=== PATIENT | female | born 1945 | race Caucasian/White ===

== ENCOUNTER 2021-06-11 10:05 | Emergency (ER) | payer SELFPAY ==
[2021-06-11] MEDS ORDERED: Bacitracin 1 PK ONE (11:11)
[2021-06-11] MEDS ORDERED: Acetaminophen 500 MG TAB ONE (11:34)
== END 2021-06-11 11:35 | disposition home or self-care (01) ==
LOC: MADERS 10:05
DX: S00.01XA Abrasion of scalp, initial encounter (principal); Z86.73 Personal history of transient ischemic attack (TIA), and cerebral infarction without residual deficits; W19.XXXA Unspecified fall, initial encounter
CPT/HCPCS: 70450; 72125; 72131; 93005

== ENCOUNTER 2021-06-21 19:53 | Emergency (ER) | payer MEDICARE, OTHER ==
[2021-06-21] MEDS ORDERED: Sodium Chloride 0.9% 500 ML ONE ×2 (21:18→22:30)
[2021-06-21 21:54] LABS: #Basophils 0.1 thou/uL (0.0-0.2); #Eosinphils 0.2 thou/uL (0.0-0.7); #Lymphocytes 2.3 thou/uL (1.20-3.40); #Monocytes 0.8 thou/uL (0.11-0.59); #Neutrophils 6.9 thou/uL (1.40-6.50); %Basophils 0.6 % (0.0-1.0); %Eosinophils 1.6 % (0.0-10.0); %Lymphocytes 22.6 % (21.0-51.0); %Monocytes 7.4 % (0.0-10.0); %Neutrophils 67.8 % (42.0-75.0); Hemoglobin 12.2 g/dL (12.0-16.0); Mean Corpuscular HGB CONC 32.5 g/dL (32.0-36.0); Mean Corpuscular Hemoglobin 28.6 pg (27.0-31.0); Mean Platelet Volume 6.9 fL (7.4-10.4); Platelet Count 290 thou/uL (130-400); RBC Distribution Width 13.7 % (11.5-14.5); Red Blood Cell (RBC) Count 4.27 mill/uL (4.20-5.40); White Blood Cell (WBC) Count 10.1 thou/uL (4.8-10.8)
[2021-06-21 22:13] LABS: ALT (SGPT) 15 U/L (8-55); AST (SGOT) 10 U/L (5-34); Alkaline Phosphatase 76 U/L (40-110); Anion Gap 14 mmol/L (10-20); BUN (Urea Nitrogen) 30 mg/dL (9.8-20.1); Bilirubin, Total 0.5 mg/dL (0.2-1.2); CK (CPK) 19 U/L (29-168); Calc. Creatinine Clearance 0 mL/min (70-130); Calcium 10.4 mg/dL (7.8-10.44); Carbon Dioxide 23 mmol/L (23-31); Chloride 105 mmol/L (98-107); Globulin 2.3 g/dL (2.4-3.5); Glucose 101 mg/dL (83-110); Magnesium 1.9 mg/dL (1.6-2.6); Potassium 4.2 mmol/L (3.5-5.1); Protein, Total 6.3 g/dL (5.8-8.1); Sodium 138 mmol/L (136-145)
[2021-06-21 22:52] LABS: Bilirubin Negative (Negative); Blood, Urine Negative (Negative); Clarity Clear (Clear); Glucose, Urine (Dipstick) Negative (Negative); Ketone, Urine Negative (Negative); Leukocyte Negative (Negative); Nitrite Negative (Negative); Protein, Urine (Dipstick) Negative (Neg-Trace); Urobilinogen 0.2 mg/dL (Less than 2); pH, Urine 5.5 (5.0-9.0)
== END 2021-06-21 23:37 | disposition home or self-care (01) ==
LOC: MADERS 19:53
DX: E86.0 Dehydration (principal); E03.9 Hypothyroidism, unspecified; K21.9 Gastro-esophageal reflux disease without esophagitis; I10 Essential (primary) hypertension; Z79.899 Other long term (current) drug therapy; Z79.82 Long term (current) use of aspirin
CPT/HCPCS: 70450; 71045; 80053; 81003; 82550; 83735; 83880; 84484; 85025; 93005; 94760; J7030

== ENCOUNTER 2021-10-26 13:49 | Emergency (ER) | payer MEDICARE ==
[2021-10-26 14:35] LABS: #Eosinphils 0.1 thou/uL (0.0-0.7); #Lymphocytes 1.7 thou/uL (1.20-3.40); #Monocytes 0.5 thou/uL (0.11-0.59); #Neutrophils 5.3 thou/uL (1.40-6.50); %Basophils 0.6 % (0.0-1.0); %Eosinophils 1.2 % (0.0-10.0); %Lymphocytes 22.1 % (21.0-51.0); %Monocytes 6.7 % (0.0-10.0); %Neutrophils 69.4 % (42.0-75.0); Hemoglobin 13.3 g/dL (12.0-16.0); Mean Corpuscular HGB CONC 33.4 g/dL (32.0-36.0); Mean Corpuscular Hemoglobin 29.7 pg (27.0-31.0); Mean Corpuscular Volume 89.1 fL (78.0-98.0); Mean Platelet Volume 8.5 fL (7.4-10.4); Platelet Count 247 thou/uL (130-400); RBC Distribution Width 14.1 % (11.5-14.5); Red Blood Cell (RBC) Count 4.49 mill/uL (4.20-5.40); White Blood Cell (WBC) Count 7.7 thou/uL (4.8-10.8)
[2021-10-26] MEDS ORDERED: Lidocaine Viscous Sol 2% 15 ml UD Cup ONE (14:46)
[2021-10-26] MEDS ORDERED: Mag-Al Plus 1200 MG/1200 MG/120 MG/30 ML UDCUP ONE (14:46)
[2021-10-26] MEDS ORDERED: Aspirin Chewable 81 MG TAB ONE (14:46)
[2021-10-26 14:50] LABS: ALT (SGPT) 13 U/L (8-55); AST (SGOT) 19 U/L (5-34); Albumin 4.1 g/dL (3.4-4.8); Alkaline Phosphatase 67 U/L (40-110); Anion Gap 19 mmol/L (10-20); BUN (Urea Nitrogen) 32 mg/dL (9.8-20.1); Bilirubin, Total 0.3 mg/dL (0.2-1.2); Calc. Creatinine Clearance 0 mL/min (70-130); Calcium 10.2 mg/dL (7.8-10.44); Carbon Dioxide 25 mmol/L (23-31); Chloride 105 mmol/L (98-107); Globulin 2.9 g/dL (2.4-3.5); Glucose 101 mg/dL (83-110); Lipase 24 U/L (8-78); Potassium 4.3 mmol/L (3.5-5.1); Sodium 145 mmol/L (136-145)
== END 2021-10-26 15:59 | disposition home or self-care (01) ==
LOC: MADERS 13:49
DX: K21.9 Gastro-esophageal reflux disease without esophagitis (principal); R07.89 Other chest pain; E78.2 Mixed hyperlipidemia; I10 Essential (primary) hypertension; M81.0 Age-related osteoporosis without current pathological fracture; Z86.73 Personal history of transient ischemic attack (TIA), and cerebral infarction without residual deficits; Z79.899 Other long term (current) drug therapy; Z79.01 Long term (current) use of anticoagulants
CPT/HCPCS: 71045; 80053; 83690; 83880; 84443; 84484; 85025; 93005; 94760

== ENCOUNTER 2022-01-09 16:45 | Inpatient (IN) | payer OTHER ==
[2022-01-09] MEDS ORDERED: Bisacodyl 5 MG TAB PO PRN (19:45)
[2022-01-09] MEDS ORDERED: Ondansetron ODT 4 MG TAB PO PRN (19:45)
[2022-01-09] MEDS ORDERED: Acetaminophen 650 MG Suppository PR PRN (19:48)
[2022-01-09] MEDS: Famotidine 20 MG TAB PO SCH (21:17)
[2022-01-09] MEDS ORDERED: CYANOCOBALAMIN SL SCH (22:00)
[2022-01-09] MEDS ORDERED: [UNRECOGNIZED DRUG - OTHER] SL SCH (22:00)
[2022-01-09] MEDS ORDERED: levETIRAcetam 500 MG TAB PO SCH (22:30)
[2022-01-10] MEDS: Levothyroxine Sodium 50 MCG TAB PO SCH (05:40)
[2022-01-10] MEDS: Clopidogrel Bisulfate 75 MG TAB PO SCH (08:39)
[2022-01-10] MEDS: Ascorbic Acid 500 mg Chewable Tablet PO SCH (08:39)
[2022-01-10] MEDS: levETIRAcetam 500 MG TAB PO SCH ×2 (08:39→21:22)
[2022-01-10] MEDS: Cholecalciferol 1,000 UNITS (25 MCG) TAB PO SCH (08:39)
[2022-01-10] MEDS: Aspirin 81 mg Enteric Coated Tablet PO SCH (08:39)
[2022-01-10] MEDS: Atorvastatin Calcium 10 MG TAB PO SCH (08:39)
[2022-01-10] MEDS: Ferrous Sulfate 325 MG TAB PO SCH (08:39)
[2022-01-10] MEDS: Lisinopril 10 MG TAB PO SCH (08:40)
[2022-01-10] MEDS: Famotidine 20 MG TAB PO SCH ×2 (08:42→21:18)
[2022-01-10] MEDS: Triamterene/Hydrochlorothiazide 37.5 mg/25 mg Tablet PO SCH (08:43)
[2022-01-10] MEDS ORDERED: prednisoLONE 1% Ophth Susp 5 ml Bottle L EYE SCH (09:00)
[2022-01-10] MEDS ORDERED: Triamterene/Hydrochlorothiazide 37.5 mg/25 mg Tablet PO SCH (09:00)
[2022-01-10] MEDS: KETOROLAC TROMETHAMINE L EYE SCH (15:41)
[2022-01-10 23:50] VITALS: BMI 25.0
[2022-01-11] MEDS: Levothyroxine Sodium 50 MCG TAB PO SCH (05:52)
[2022-01-11] MEDS: Triamterene/Hydrochlorothiazide 37.5 mg/25 mg Tablet PO SCH (09:22)
[2022-01-11] MEDS: Cholecalciferol 1,000 UNITS (25 MCG) TAB PO SCH (09:22)
[2022-01-11] MEDS: levETIRAcetam 500 MG TAB PO SCH ×2 (09:23→21:12)
[2022-01-11] MEDS: Atorvastatin Calcium 10 MG TAB PO SCH (09:23)
[2022-01-11] MEDS: Clopidogrel Bisulfate 75 MG TAB PO SCH (09:23)
[2022-01-11] MEDS: Aspirin 81 mg Enteric Coated Tablet PO SCH (09:23)
[2022-01-11] MEDS: Lisinopril 10 MG TAB PO SCH (09:23)
[2022-01-11] MEDS: Ascorbic Acid 500 mg Chewable Tablet PO SCH (09:23)
[2022-01-11] MEDS: Famotidine 20 MG TAB PO SCH (09:24)
[2022-01-11] MEDS: Senokot S 8.6-50 MG TAB PO PRN (21:12)
[2022-01-12] MEDS: Levothyroxine Sodium 50 MCG TAB PO SCH (05:57)
[2022-01-12] MEDS: Ascorbic Acid 500 mg Chewable Tablet PO SCH (09:29)
[2022-01-12] MEDS: Ferrous Sulfate 325 MG TAB PO SCH (09:29)
[2022-01-12] MEDS: Aspirin 81 mg Enteric Coated Tablet PO SCH (09:29)
[2022-01-12] MEDS: levETIRAcetam 500 MG TAB PO SCH ×2 (09:30→21:33)
[2022-01-12] MEDS: Clopidogrel Bisulfate 75 MG TAB PO SCH (09:30)
[2022-01-12] MEDS: Atorvastatin Calcium 10 MG TAB PO SCH (09:30)
[2022-01-12] MEDS: Cholecalciferol 1,000 UNITS (25 MCG) TAB PO SCH (09:30)
[2022-01-12] MEDS: Lisinopril 10 MG TAB PO SCH (09:30)
[2022-01-12] MEDS: Acetaminophen 325 MG TAB PO PRN (09:31)
[2022-01-12] MEDS: Triamterene/Hydrochlorothiazide 37.5 mg/25 mg Tablet PO SCH (09:32)
[2022-01-13] MEDS: Levothyroxine Sodium 50 MCG TAB PO SCH (05:35)
[2022-01-13] MEDS: Triamterene/Hydrochlorothiazide 37.5 mg/25 mg Tablet PO SCH (08:20)
[2022-01-13] MEDS: Ascorbic Acid 500 mg Chewable Tablet PO SCH (08:21)
[2022-01-13] MEDS: Aspirin 81 mg Enteric Coated Tablet PO SCH (08:21)
[2022-01-13] MEDS: Atorvastatin Calcium 10 MG TAB PO SCH (08:21)
[2022-01-13] MEDS: Clopidogrel Bisulfate 75 MG TAB PO SCH (08:21)
[2022-01-13] MEDS: levETIRAcetam 500 MG TAB PO SCH (08:21)
[2022-01-13] MEDS: Lisinopril 10 MG TAB PO SCH (08:21)
[2022-01-13] MEDS: Cholecalciferol 1,000 UNITS (25 MCG) TAB PO SCH (08:21)
[2022-01-13] MEDS: levETIRAcetam 500 mg/5 ml Oral Solution PO SCH (21:04)
[2022-01-14] MEDS: Levothyroxine Sodium 50 MCG TAB PO SCH (05:27)
[2022-01-14] MEDS: Cholecalciferol 1,000 UNITS (25 MCG) TAB PO SCH (09:15)
[2022-01-14] MEDS: Atorvastatin Calcium 10 MG TAB PO SCH (09:15)
[2022-01-14] MEDS: levETIRAcetam 500 mg/5 ml Oral Solution PO SCH ×2 (09:15→21:18)
[2022-01-14] MEDS: Clopidogrel Bisulfate 75 MG TAB PO SCH (09:15)
[2022-01-14] MEDS: Ascorbic Acid 500 mg Chewable Tablet PO SCH (09:15)
[2022-01-14] MEDS: Aspirin Chewable 81 MG TAB PO SCH (09:16)
[2022-01-14] MEDS: Triamterene/Hydrochlorothiazide 37.5 mg/25 mg Tablet PO SCH (09:16)
[2022-01-14] MEDS: Lisinopril 10 MG TAB PO SCH (09:16)
[2022-01-14] MEDS: Acetaminophen 325 MG TAB PO PRN (09:16)
[2022-01-14] MEDS: Gentamicin Ophth Soln 0.3% 5 ml Bottle L EYE SCH ×3 (12:47→21:18)
[2022-01-15] MEDS: Gentamicin Ophth Soln 0.3% 5 ml Bottle L EYE SCH ×6 (00:32→20:36)
[2022-01-15] MEDS: Levothyroxine Sodium 50 MCG TAB PO SCH (05:39)
[2022-01-15] MEDS: Cholecalciferol 1,000 UNITS (25 MCG) TAB PO SCH (10:14)
[2022-01-15] MEDS: Ascorbic Acid 500 mg Chewable Tablet PO SCH (10:14)
[2022-01-15] MEDS: Lisinopril 10 MG TAB PO SCH (10:14)
[2022-01-15] MEDS: Atorvastatin Calcium 10 MG TAB PO SCH (10:14)
[2022-01-15] MEDS: levETIRAcetam 500 mg/5 ml Oral Solution PO SCH ×2 (10:15→20:15)
[2022-01-15] MEDS: Triamterene/Hydrochlorothiazide 37.5 mg/25 mg Tablet PO SCH (10:15)
[2022-01-15] MEDS: Aspirin Chewable 81 MG TAB PO SCH (10:15)
[2022-01-15] MEDS: Clopidogrel Bisulfate 75 MG TAB PO SCH (10:15)
[2022-01-15] MEDS ORDERED: Lansoprazole 3 MG/ML ORAL SUSPENSION PO SCH (10:30)
[2022-01-15] MEDS: Senokot S 8.6-50 MG TAB PO PRN (20:15)
[2022-01-16] MEDS: Gentamicin Ophth Soln 0.3% 5 ml Bottle L EYE SCH ×3 (02:38→08:18)
[2022-01-16] MEDS: Levothyroxine Sodium 50 MCG TAB PO SCH (05:21)
[2022-01-16] MEDS: Cholecalciferol 1,000 UNITS (25 MCG) TAB PO SCH (08:24)
[2022-01-16] MEDS: levETIRAcetam 500 mg/5 ml Oral Solution PO SCH ×2 (08:24→21:10)
[2022-01-16] MEDS: Atorvastatin Calcium 10 MG TAB PO SCH (08:25)
[2022-01-16] MEDS: Lisinopril 10 MG TAB PO SCH (08:25)
[2022-01-16] MEDS: Aspirin Chewable 81 MG TAB PO SCH (08:25)
[2022-01-16] MEDS: Triamterene/Hydrochlorothiazide 37.5 mg/25 mg Tablet PO SCH (08:25)
[2022-01-16] MEDS: Clopidogrel Bisulfate 75 MG TAB PO SCH (08:25)
[2022-01-16] MEDS: Ascorbic Acid 500 mg Chewable Tablet PO SCH (08:26)
[2022-01-16] MEDS ORDERED: Lansoprazole 3 MG/ML ORAL SUSPENSION PO SCH (09:00)
[2022-01-16] MEDS ORDERED: Polyethylene Glycol OPTH DROP 15 ML BOT EA EYE PRN (12:11)
[2022-01-16] MEDS: MOXIFLOXACIN 0.5% L EYE SCH ×3 (13:09→21:11)
[2022-01-17] MEDS: Levothyroxine Sodium 50 MCG TAB PO SCH (05:58)
[2022-01-17] MEDS: Aspirin Chewable 81 MG TAB PO SCH (08:47)
[2022-01-17] MEDS: levETIRAcetam 500 mg/5 ml Oral Solution PO SCH ×2 (08:47→20:28)
[2022-01-17] MEDS: Triamterene/Hydrochlorothiazide 37.5 mg/25 mg Tablet PO SCH (08:47)
[2022-01-17] MEDS: Lisinopril 10 MG TAB PO SCH (08:48)
[2022-01-17] MEDS: Cholecalciferol 1,000 UNITS (25 MCG) TAB PO SCH (08:48)
[2022-01-17] MEDS: Clopidogrel Bisulfate 75 MG TAB PO SCH (08:48)
[2022-01-17] MEDS: Ascorbic Acid 500 mg Chewable Tablet PO SCH (08:48)
[2022-01-17] MEDS: Atorvastatin Calcium 10 MG TAB PO SCH (08:48)
[2022-01-17] MEDS: MOXIFLOXACIN 0.5% L EYE SCH ×3 (08:49→20:30)
[2022-01-17] MEDS: Acetaminophen 325 MG TAB PO PRN (20:30)
[2022-01-18] MEDS: Levothyroxine Sodium 50 MCG TAB PO SCH (06:13)
[2022-01-18] MEDS: levETIRAcetam 500 mg/5 ml Oral Solution PO SCH ×2 (08:43→20:48)
[2022-01-18] MEDS: Triamterene/Hydrochlorothiazide 37.5 mg/25 mg Tablet PO SCH (08:43)
[2022-01-18] MEDS: Cholecalciferol 1,000 UNITS (25 MCG) TAB PO SCH (08:43)
[2022-01-18] MEDS: Ascorbic Acid 500 mg Chewable Tablet PO SCH (08:43)
[2022-01-18] MEDS: Lisinopril 10 MG TAB PO SCH (08:44)
[2022-01-18] MEDS: Clopidogrel Bisulfate 75 MG TAB PO SCH (08:44)
[2022-01-18] MEDS: Atorvastatin Calcium 10 MG TAB PO SCH (08:44)
[2022-01-18] MEDS: Aspirin Chewable 81 MG TAB PO SCH (08:44)
[2022-01-18] MEDS: MOXIFLOXACIN 0.5% L EYE SCH ×3 (08:45→20:47)
[2022-01-19] MEDS: Levothyroxine Sodium 50 MCG TAB PO SCH (05:27)
[2022-01-19] MEDS: Triamterene/Hydrochlorothiazide 37.5 mg/25 mg Tablet PO SCH (08:55)
[2022-01-19] MEDS: Lisinopril 10 MG TAB PO SCH (08:55)
[2022-01-19] MEDS: levETIRAcetam 500 mg/5 ml Oral Solution PO SCH ×2 (08:55→20:24)
[2022-01-19] MEDS: Clopidogrel Bisulfate 75 MG TAB PO SCH (08:56)
[2022-01-19] MEDS: Atorvastatin Calcium 10 MG TAB PO SCH (08:56)
[2022-01-19] MEDS: Aspirin Chewable 81 MG TAB PO SCH (08:56)
[2022-01-19] MEDS: Cholecalciferol 1,000 UNITS (25 MCG) TAB PO SCH (08:56)
[2022-01-19] MEDS: Ascorbic Acid 500 mg Chewable Tablet PO SCH (08:56)
[2022-01-19] MEDS: MOXIFLOXACIN 0.5% L EYE SCH ×3 (08:57→20:24)
[2022-01-20] MEDS: Levothyroxine Sodium 50 MCG TAB PO SCH (05:33)
[2022-01-20] MEDS: Triamterene/Hydrochlorothiazide 37.5 mg/25 mg Tablet PO SCH (08:06)
[2022-01-20] MEDS: Cholecalciferol 1,000 UNITS (25 MCG) TAB PO SCH (08:06)
[2022-01-20] MEDS: Aspirin Chewable 81 MG TAB PO SCH (08:06)
[2022-01-20] MEDS: Atorvastatin Calcium 10 MG TAB PO SCH (08:07)
[2022-01-20] MEDS: Acetaminophen 325 MG TAB PO PRN (08:07)
[2022-01-20] MEDS: Clopidogrel Bisulfate 75 MG TAB PO SCH (08:07)
[2022-01-20] MEDS: Ascorbic Acid 500 mg Chewable Tablet PO SCH (08:07)
[2022-01-20] MEDS: levETIRAcetam 500 mg/5 ml Oral Solution PO SCH (08:07)
[2022-01-20] MEDS: Lisinopril 10 MG TAB PO SCH (08:07)
[2022-01-20] MEDS: MOXIFLOXACIN 0.5% L EYE SCH ×2 (08:09→16:10)
[2022-01-20 08:35] VITALS: BP 122/66; TEMP 98.5
== END 2022-01-20 16:30 | disposition home or self-care (01) | DRG 947 ==
LOC: MADMS 18:47
PROVIDERS: ADMIT Family Medicine; ATTEND Family Medicine
DX: R53.81 Other malaise (principal); G93.41 Metabolic encephalopathy; I69.351 Hemiplegia and hemiparesis following cerebral infarction affecting right dominant side; G43.909 Migraine, unspecified, not intractable, without status migrainosus; E78.5 Hyperlipidemia, unspecified; E86.0 Dehydration; Z20.822 Contact with and (suspected) exposure to COVID-19; M19.90 Unspecified osteoarthritis, unspecified site; E03.9 Hypothyroidism, unspecified; Z85.841 Personal history of malignant neoplasm of brain; Z92.21 Personal history of antineoplastic chemotherapy; Z92.3 Personal history of irradiation; Z88.6 Allergy status to analgesic agent; Z79.899 Other long term (current) drug therapy; Z79.82 Long term (current) use of aspirin; Z79.02 Long term (current) use of antithrombotics/antiplatelets; Z79.890 Hormone replacement therapy; Z79.51 Long term (current) use of inhaled steroids; Z98.41 Cataract extraction status, right eye; Z98.42 Cataract extraction status, left eye; Z90.710 Acquired absence of both cervix and uterus
CPT/HCPCS: 36416; U0003; U0005

== ENCOUNTER 2022-04-22 14:46 | Emergency (ER) | payer OTHER ==
[2022-04-22] MEDS ORDERED: Famotidine/PF 20 mg/2ml Vial ONE (15:02)
[2022-04-22] MEDS ORDERED: Famotidine/PF 20 mg/2ml Vial SLOW IVP SCH (15:30)
[2022-04-22 15:53] LABS: #Basophils 0.1 thou/uL (0.0-0.2); #Eosinphils 0.1 thou/uL (0.0-0.7); #Lymphocytes 2.2 thou/uL (1.20-3.40); #Monocytes 0.7 thou/uL (0.11-0.59); #Neutrophils 6.3 thou/uL (1.40-6.50); %Basophils 0.8 % (0.0-1.0); %Eosinophils 1.1 % (0.0-10.0); %Lymphocytes 23.1 % (21.0-51.0); %Monocytes 7.4 % (0.0-10.0); %Neutrophils 67.6 % (42.0-75.0); Hemoglobin 13.6 g/dL (12.0-16.0); Mean Corpuscular HGB CONC 31.7 g/dL (32.0-36.0); Mean Corpuscular Hemoglobin 28.7 pg (27.0-31.0); Mean Corpuscular Volume 90.8 fL (78.0-98.0); Mean Platelet Volume 7.5 fL (7.4-10.4); Platelet Count 265 thou/uL (130-400); RBC Distribution Width 14.2 % (11.5-14.5); Red Blood Cell (RBC) Count 4.75 mill/uL (4.20-5.40); White Blood Cell (WBC) Count 9.4 thou/uL (4.8-10.8)
[2022-04-22 16:07] LABS: ALT (SGPT) 15 U/L (8-55); AST (SGOT) 22 U/L (5-34); Albumin 4.1 g/dL (3.4-4.8); Alkaline Phosphatase 94 U/L (40-110); Anion Gap 15 mmol/L (10-20); BUN (Urea Nitrogen) 29 mg/dL (9.8-20.1); Bilirubin, Total 0.3 mg/dL (0.2-1.2); Calc. Creatinine Clearance 0 mL/min (70-130); Carbon Dioxide 25 mmol/L (23-31); Chloride 106 mmol/L (98-107); Estimated GFR 71; Glucose 99 mg/dL (83-110); Magnesium 1.8 mg/dL (1.6-2.6); Potassium 4.5 mmol/L (3.5-5.1); Protein, Total 7.1 g/dL (5.8-8.1); Sodium 141 mmol/L (136-145)
[2022-04-22] MEDS ORDERED: Sodium Chloride 0.9% 1,000 ML ONE (17:03)
== END 2022-04-22 19:56 | disposition home or self-care (01) ==
LOC: MADERS 14:46
DX: R07.9 Chest pain, unspecified (principal); E03.9 Hypothyroidism, unspecified; K21.9 Gastro-esophageal reflux disease without esophagitis; E78.00 Pure hypercholesterolemia, unspecified; I10 Essential (primary) hypertension; M81.0 Age-related osteoporosis without current pathological fracture; G40.409 Other generalized epilepsy and epileptic syndromes, not intractable, without status epilepticus; Z85.72 Personal history of non-Hodgkin lymphomas; Z79.899 Other long term (current) drug therapy
CPT/HCPCS: 71045; 80053; 83735; 84484; 85025; 93005; 96374; J7050; S0028

== ENCOUNTER 2022-08-11 19:26 | Emergency (ER) | payer MEDICARE, OTHER ==
[2022-08-11 21:00] LABS: #Basophils 0.1 thou/uL (0.0-0.2); #Eosinphils 0.2 thou/uL (0.0-0.7); #Lymphocytes 2.2 thou/uL (1.20-3.40); #Monocytes 0.7 thou/uL (0.11-0.59); #Neutrophils 7.7 thou/uL (1.40-6.50); %Basophils 0.6 % (0.0-1.0); %Eosinophils 1.7 % (0.0-10.0); %Lymphocytes 20.3 % (21.0-51.0); %Monocytes 6.1 % (0.0-10.0); %Neutrophils 71.3 % (42.0-75.0); Hemoglobin 11.7 g/dL (12.0-16.0); Mean Corpuscular HGB CONC 33.5 g/dL (32.0-36.0); Mean Corpuscular Hemoglobin 29.6 pg (27.0-31.0); Mean Corpuscular Volume 88.4 fl (78.0-98.0); Mean Platelet Volume 7.4 fL (7.4-10.4); Platelet Count 263 10x3/uL (130-400); RBC Distribution Width 12.9 % (11.5-14.5); Red Blood Cell (RBC) Count 3.96 mill/uL (4.20-5.40); White Blood Cell (WBC) Count 10.8 10x3/uL (4.8-10.8)
[2022-08-11 21:18] LABS: Base Excess-Venous -0.3 mmol/L (-2.0 to 3.0); Bicarbonate (HCO3v) 24.2 mmol/L (22.0-28.0); CO2 Tension (PvCO2) 38.4 mmHg (42.0-51.0); Calcium, Ionized 1.22 mmol/L (1.15-1.33); Chloride 105 mmol/L (98-107); Hemoglobin - Calc 12.1 g/dL (12.0-16.0); Potassium 3.9 mmol/L (3.5-5.1); Sodium 139 mmol/L (138-145); T. Carbon Dioxide 25.4 mmol/L (22.0-28.0)
[2022-08-11 21:28] LABS: ALT (SGPT) 12 U/L (8-55); AST (SGOT) 12 U/L (5-34); Albumin 3.6 g/dL (3.4-4.8); Alkaline Phosphatase 70 U/L (40-110); Anion Gap 14 mmol/L (10-20); BUN (Urea Nitrogen) 38 mg/dL (9.8-20.1); Bilirubin, Total 0.3 mg/dL (0.2-1.2); CK (CPK) 19 U/L (29-168); Calc. Creatinine Clearance 0 mL/min (70-130); Calcium 9.5 mg/dL (7.8-10.44); Carbon Dioxide 23 mmol/L (23-31); Chloride 106 mmol/L (98-107); Estimated GFR 71; Globulin 1.9 g/dL (2.4-3.5); Glucose 106 mg/dL (83-110); Lipase 36 U/L (8-78); Magnesium 1.8 mg/dL (1.6-2.6); Protein, Total 5.5 g/dL (5.8-8.1); Sodium 139 mmol/L (136-145)
[2022-08-11] MEDS ORDERED: Lactated Ringer's 1,000 ML ONE (22:31)
== END 2022-08-11 23:40 | disposition home or self-care (01) ==
LOC: MADERS 19:26
DX: E86.0 Dehydration (principal); E86.1 Hypovolemia; N19 Unspecified kidney failure; E03.9 Hypothyroidism, unspecified; K21.9 Gastro-esophageal reflux disease without esophagitis; E78.00 Pure hypercholesterolemia, unspecified; I10 Essential (primary) hypertension; M81.0 Age-related osteoporosis without current pathological fracture; G40.409 Other generalized epilepsy and epileptic syndromes, not intractable, without status epilepticus; Z20.822 Contact with and (suspected) exposure to COVID-19; Z86.73 Personal history of transient ischemic attack (TIA), and cerebral infarction without residual deficits; Z85.841 Personal history of malignant neoplasm of brain; Z79.899 Other long term (current) drug therapy
CPT/HCPCS: 71045; 82330; 82435; 82550; 82803; 83605; 83690; 83735; 84132; 84295; 85014; 87040; 87149 ×2; 87804 ×2; 93005; 94760; 96360; 99284; U0003; U0005; 80053; 84443; 85025; J7120

== ENCOUNTER 2022-08-21 10:27 | Emergency (ER) | payer OTHER ==
[2022-08-21] MEDS ORDERED: Lactated Ringer's 1,000 ML ONE ×2 (11:33→12:49)
[2022-08-21 11:46] LABS: #Basophils 0.1 thou/uL (0.0-0.2); #Eosinphils 0.2 thou/uL (0.0-0.7); #Lymphocytes 1.9 thou/uL (1.20-3.40); #Monocytes 0.5 thou/uL (0.11-0.59); #Neutrophils 6.3 thou/uL (1.40-6.50); %Basophils 0.8 % (0.0-1.0); %Eosinophils 1.8 % (0.0-10.0); %Lymphocytes 21.3 % (21.0-51.0); %Monocytes 5.8 % (0.0-10.0); %Neutrophils 70.3 % (42.0-75.0); Hemoglobin 11.9 g/dL (12.0-16.0); Mean Corpuscular HGB CONC 33.2 g/dL (32.0-36.0); Mean Corpuscular Hemoglobin 29.1 pg (27.0-31.0); Mean Corpuscular Volume 87.8 fl (78.0-98.0); Mean Platelet Volume 6.4 fL (7.4-10.4); Platelet Count 308 10x3/uL (130-400); RBC Distribution Width 12.6 % (11.5-14.5); Red Blood Cell (RBC) Count 4.08 mill/uL (4.20-5.40)
[2022-08-21 12:09] LABS: ALT (SGPT) 13 U/L (8-55); AST (SGOT) 13 U/L (5-34); Albumin 4.2 g/dL (3.4-4.8); Alkaline Phosphatase 76 U/L (40-110); Anion Gap 14 mmol/L (10-20); BUN (Urea Nitrogen) 37 mg/dL (9.8-20.1); Bilirubin, Total 0.4 mg/dL (0.2-1.2); CK (CPK) 18 U/L (29-168); Calc. Creatinine Clearance 0 mL/min (70-130); Calcium 9.4 mg/dL (7.8-10.44); Carbon Dioxide 25 mmol/L (23-31); Chloride 107 mmol/L (98-107); Estimated GFR 48; Globulin 2.3 g/dL (2.4-3.5); Glucose 116 mg/dL (83-110); Lipase 25 U/L (8-78); Potassium 4.3 mmol/L (3.5-5.1); Protein, Total 6.5 g/dL (5.8-8.1); Sodium 142 mmol/L (136-145)
[2022-08-21 12:57] LABS: Bilirubin Negative (Negative); Blood, Urine Negative (Negative); Clarity Clear (Clear); Glucose, Urine (Dipstick) Negative (Negative); Ketone, Urine Negative (Negative); Leukocyte Negative (Negative); Nitrite Negative (Negative); Protein, Urine (Dipstick) Negative (Neg-Trace); Specific Gravity, Urine 1.025 (1.005-1.030); Urobilinogen 0.2 mg/dL (Less than 2)
== END 2022-08-21 13:15 | disposition home or self-care (01) ==
LOC: MADERS 10:27
DX: E86.0 Dehydration (principal); N19 Unspecified kidney failure; E03.9 Hypothyroidism, unspecified; K21.9 Gastro-esophageal reflux disease without esophagitis; E78.00 Pure hypercholesterolemia, unspecified; I10 Essential (primary) hypertension
CPT/HCPCS: 80053; 81003; 82550; 83605; 83690; 83735; 83880; 85025; 87040; 93005; 94760; 96360; J7120

== ENCOUNTER 2022-11-14 11:14 | Emergency (ER) | payer OTHER ==
[2022-11-14 13:06] LABS: #Eosinphils 0.1 thou/uL (0.0-0.7); #Lymphocytes 1.5 thou/uL (1.20-3.40); #Monocytes 0.4 thou/uL (0.11-0.59); #Neutrophils 5.1 thou/uL (1.40-6.50); %Basophils 0.4 % (0.0-1.0); %Eosinophils 1.9 % (0.0-10.0); %Lymphocytes 21.5 % (21.0-51.0); %Monocytes 5.6 % (0.0-10.0); %Neutrophils 70.7 % (42.0-75.0); Hemoglobin 13.6 g/dL (12.0-16.0); Mean Corpuscular Hemoglobin 28.4 pg (27.0-31.0); Mean Corpuscular Volume 88.6 fl (78.0-98.0); Mean Platelet Volume 8.5 fL (7.4-10.4); Platelet Count 244 10x3/uL (130-400); RBC Distribution Width 13.8 % (11.5-14.5); Red Blood Cell (RBC) Count 4.78 mill/uL (4.20-5.40); White Blood Cell (WBC) Count 7.2 10x3/uL (4.8-10.8)
[2022-11-14 13:17] LABS: INR-International Normal Ratio 0.9; Prothrombin Time 12.4 sec (12.0-14.7)
[2022-11-14 13:26] LABS: ALT (SGPT) 10 U/L (8-55); AST (SGOT) 13 U/L (5-34); Albumin 3.9 g/dL (3.4-4.8); Alkaline Phosphatase 87 U/L (40-110); Anion Gap 15 mmol/L (10-20); BUN (Urea Nitrogen) 17 mg/dL (9.8-20.1); Bilirubin, Total 0.4 mg/dL (0.2-1.2); Calc. Creatinine Clearance 0 mL/min (70-130); Calcium 9.7 mg/dL (7.8-10.44); Carbon Dioxide 24 mmol/L (23-31); Chloride 107 mmol/L (98-107); Estimated GFR 67; Globulin 2.9 g/dL (2.4-3.5); Glucose 96 mg/dL (83-110); Potassium 3.9 mmol/L (3.5-5.1); Protein, Total 6.8 g/dL (5.8-8.1); Sodium 142 mmol/L (136-145)
[2022-11-14 13:50] LABS: Bilirubin Negative (Negative); Blood, Urine Negative (Negative); Clarity Clear (Clear); Glucose, Urine (Dipstick) Negative (Negative); Ketone, Urine Negative (Negative); Leukocyte Negative (Negative); Nitrite Negative (Negative); Protein, Urine (Dipstick) Negative (Neg-Trace); Specific Gravity, Urine 1.025 (1.005-1.030); Urobilinogen 0.2 mg/dL (Less than 2)
[2022-11-14] MEDS ORDERED: Aspirin Chewable 81 MG TAB ONE (14:24)
== END 2022-11-14 15:41 | disposition home or self-care (01) ==
LOC: MADERS 11:14
DX: R53.1 Weakness (principal); E78.00 Pure hypercholesterolemia, unspecified; E03.9 Hypothyroidism, unspecified; K21.9 Gastro-esophageal reflux disease without esophagitis; I10 Essential (primary) hypertension; Z79.02 Long term (current) use of antithrombotics/antiplatelets; Z79.82 Long term (current) use of aspirin
CPT/HCPCS: 70450; 80053; 81003; 85025; 85610; 93005

== ENCOUNTER 2022-12-22 15:15 | Inpatient (IN) | payer OTHER ==
[2022-12-22] MEDS ORDERED: Acetaminophen 325 MG TAB PO PRN (16:59)
[2022-12-22] MEDS: Levothyroxine Sodium 25 MCG TAB PO SCH (21:49)
[2022-12-22] MEDS: Simethicone Chewable 80 MG TAB PO SCH ×2 (21:49)
[2022-12-22] MEDS: Atorvastatin Calcium 40 MG TAB PO SCH (21:49)
[2022-12-22] MEDS: levETIRAcetam 500 mg/5 ml Oral Solution PO SCH (21:50)
[2022-12-22] MEDS: Ferrous Sulfate 325 MG TAB PO SCH (21:50)
[2022-12-23] MEDS: Aspirin Chewable 81 MG TAB PO SCH (08:22)
[2022-12-23] MEDS: Simethicone Chewable 80 MG TAB PO SCH ×4 (08:23→21:39)
[2022-12-23] MEDS: levETIRAcetam 500 mg/5 ml Oral Solution PO SCH ×2 (08:23→21:36)
[2022-12-23] MEDS: Lisinopril 20 MG TAB PO SCH (08:23)
[2022-12-23] MEDS: Saccharomyces boulardii 250 MG CAP PO SCH (08:24)
[2022-12-23] MEDS: Cholecalciferol (Vitamin D3) 400 UNITS TAB PO SCH (08:24)
[2022-12-23] MEDS: Amlodipine 5 MG TAB PO SCH (08:24)
[2022-12-23] MEDS: Clopidogrel Bisulfate 75 MG TAB PO SCH (08:24)
[2022-12-23] MEDS: Atorvastatin Calcium 40 MG TAB PO SCH (21:36)
[2022-12-23] MEDS: Levothyroxine Sodium 25 MCG TAB PO SCH (21:36)
[2022-12-24 05:33] LABS: Hemoglobin 10.9 g/dL (12.0-16.0); Platelet Count 298 10x3/uL (130-400)
[2022-12-24] MEDS: Lisinopril 20 MG TAB PO SCH (09:06)
[2022-12-24] MEDS: Clopidogrel Bisulfate 75 MG TAB PO SCH (09:06)
[2022-12-24] MEDS: Aspirin Chewable 81 MG TAB PO SCH (09:06)
[2022-12-24] MEDS: Cholecalciferol (Vitamin D3) 400 UNITS TAB PO SCH (09:06)
[2022-12-24] MEDS: levETIRAcetam 500 mg/5 ml Oral Solution PO SCH ×2 (09:06→21:36)
[2022-12-24] MEDS: Amlodipine 5 MG TAB PO SCH (09:07)
[2022-12-24] MEDS: Simethicone Chewable 80 MG TAB PO SCH ×4 (09:07→22:05)
[2022-12-24] MEDS: Saccharomyces boulardii 250 MG CAP PO SCH (09:07)
[2022-12-24 13:06] VITALS: BMI 25.4
[2022-12-24] MEDS: Atorvastatin Calcium 40 MG TAB PO SCH (21:42)
[2022-12-24] MEDS: Ferrous Sulfate 325 MG TAB PO SCH (21:42)
[2022-12-24] MEDS: Levothyroxine Sodium 25 MCG TAB PO SCH (21:42)
[2022-12-25] MEDS: Amlodipine 5 MG TAB PO SCH (09:14)
[2022-12-25] MEDS: Cholecalciferol (Vitamin D3) 400 UNITS TAB PO SCH (09:15)
[2022-12-25] MEDS: Aspirin Chewable 81 MG TAB PO SCH (09:15)
[2022-12-25] MEDS: Simethicone Chewable 80 MG TAB PO SCH ×4 (09:16→22:11)
[2022-12-25] MEDS: Saccharomyces boulardii 250 MG CAP PO SCH (09:16)
[2022-12-25] MEDS: Clopidogrel Bisulfate 75 MG TAB PO SCH (09:17)
[2022-12-25] MEDS: Lisinopril 20 MG TAB PO SCH (09:17)
[2022-12-25] MEDS: levETIRAcetam 500 mg/5 ml Oral Solution PO SCH ×2 (09:17→20:14)
[2022-12-25] MEDS: Levothyroxine Sodium 25 MCG TAB PO SCH (20:14)
[2022-12-25] MEDS: Atorvastatin Calcium 40 MG TAB PO SCH (20:15)
[2022-12-26] MEDS: Cholecalciferol (Vitamin D3) 400 UNITS TAB PO SCH (09:08)
[2022-12-26] MEDS: Aspirin Chewable 81 MG TAB PO SCH (09:08)
[2022-12-26] MEDS: Amlodipine 5 MG TAB PO SCH (09:08)
[2022-12-26] MEDS: Clopidogrel Bisulfate 75 MG TAB PO SCH (09:09)
[2022-12-26] MEDS: Lisinopril 20 MG TAB PO SCH (09:09)
[2022-12-26] MEDS: Saccharomyces boulardii 250 MG CAP PO SCH (09:09)
[2022-12-26] MEDS: levETIRAcetam 500 mg/5 ml Oral Solution PO SCH ×2 (09:10→21:26)
[2022-12-26] MEDS: Simethicone Chewable 80 MG TAB PO SCH ×4 (09:10→21:40)
[2022-12-26] MEDS: Levothyroxine Sodium 25 MCG TAB PO SCH (21:26)
[2022-12-26] MEDS: Atorvastatin Calcium 40 MG TAB PO SCH (21:26)
[2022-12-26] MEDS: Ferrous Sulfate 325 MG TAB PO SCH (21:30)
[2022-12-27] MEDS: Lisinopril 20 MG TAB PO SCH (08:35)
[2022-12-27] MEDS: Aspirin Chewable 81 MG TAB PO SCH (08:35)
[2022-12-27] MEDS: Simethicone Chewable 80 MG TAB PO SCH ×4 (08:35→22:59)
[2022-12-27] MEDS: levETIRAcetam 500 mg/5 ml Oral Solution PO SCH ×2 (08:35→20:30)
[2022-12-27] MEDS: Saccharomyces boulardii 250 MG CAP PO SCH (08:35)
[2022-12-27] MEDS: Clopidogrel Bisulfate 75 MG TAB PO SCH (08:35)
[2022-12-27] MEDS: Amlodipine 5 MG TAB PO SCH (08:36)
[2022-12-27] MEDS: Cholecalciferol (Vitamin D3) 400 UNITS TAB PO SCH (08:36)
[2022-12-27] MEDS: Atorvastatin Calcium 40 MG TAB PO SCH (20:33)
[2022-12-27] MEDS: Levothyroxine Sodium 25 MCG TAB PO SCH (20:33)
[2022-12-28] MEDS: Amlodipine 5 MG TAB PO SCH (08:36)
[2022-12-28] MEDS: Saccharomyces boulardii 250 MG CAP PO SCH (08:37)
[2022-12-28] MEDS: Simethicone Chewable 80 MG TAB PO SCH ×4 (08:37→20:45)
[2022-12-28] MEDS: Aspirin Chewable 81 MG TAB PO SCH (08:37)
[2022-12-28] MEDS: levETIRAcetam 500 mg/5 ml Oral Solution PO SCH ×2 (08:37→20:45)
[2022-12-28] MEDS: Cholecalciferol (Vitamin D3) 400 UNITS TAB PO SCH (08:37)
[2022-12-28] MEDS: Clopidogrel Bisulfate 75 MG TAB PO SCH (08:37)
[2022-12-28] MEDS: Lisinopril 20 MG TAB PO SCH (08:37)
[2022-12-28] MEDS: Levothyroxine Sodium 25 MCG TAB PO SCH (20:45)
[2022-12-28] MEDS: Ferrous Sulfate 325 MG TAB PO SCH (20:45)
[2022-12-28] MEDS: Atorvastatin Calcium 40 MG TAB PO SCH (20:45)
[2022-12-29] MEDS: Cholecalciferol (Vitamin D3) 400 UNITS TAB PO SCH (09:34)
[2022-12-29] MEDS: Amlodipine 5 MG TAB PO SCH (09:34)
[2022-12-29] MEDS: Aspirin Chewable 81 MG TAB PO SCH (09:34)
[2022-12-29] MEDS: levETIRAcetam 500 mg/5 ml Oral Solution PO SCH ×2 (09:34→21:03)
[2022-12-29] MEDS: Clopidogrel Bisulfate 75 MG TAB PO SCH (09:35)
[2022-12-29] MEDS: Lisinopril 20 MG TAB PO SCH (09:35)
[2022-12-29] MEDS: Saccharomyces boulardii 250 MG CAP PO SCH (09:35)
[2022-12-29] MEDS: Simethicone Chewable 80 MG TAB PO SCH ×4 (09:35→22:03)
[2022-12-29] MEDS: Atorvastatin Calcium 40 MG TAB PO SCH (21:03)
[2022-12-29] MEDS: Levothyroxine Sodium 25 MCG TAB PO SCH (21:03)
[2022-12-30] MEDS: Cholecalciferol (Vitamin D3) 400 UNITS TAB PO SCH (08:54)
[2022-12-30] MEDS: Polyethylene Glycol OPTH DROP 15 ML BOT R EYE PRN ×2 (08:54→13:27)
[2022-12-30] MEDS: Aspirin Chewable 81 MG TAB PO SCH (08:54)
[2022-12-30] MEDS: levETIRAcetam 500 mg/5 ml Oral Solution PO SCH ×2 (08:54→20:26)
[2022-12-30] MEDS: Saccharomyces boulardii 250 MG CAP PO SCH (08:54)
[2022-12-30] MEDS: Amlodipine 5 MG TAB PO SCH (08:55)
[2022-12-30] MEDS: Lisinopril 20 MG TAB PO SCH (08:55)
[2022-12-30] MEDS: Clopidogrel Bisulfate 75 MG TAB PO SCH (08:55)
[2022-12-30] MEDS: Simethicone Chewable 80 MG TAB PO SCH ×4 (08:55→22:16)
[2022-12-30] MEDS: Ferrous Sulfate 325 MG TAB PO SCH (17:18)
[2022-12-30] MEDS: Atorvastatin Calcium 40 MG TAB PO SCH (20:25)
[2022-12-30] MEDS: Levothyroxine Sodium 25 MCG TAB PO SCH (22:15)
[2022-12-31] MEDS: Levothyroxine Sodium 25 MCG TAB PO SCH (05:48)
[2022-12-31] MEDS: Saccharomyces boulardii 250 MG CAP PO SCH (08:11)
[2022-12-31] MEDS: levETIRAcetam 500 mg/5 ml Oral Solution PO SCH ×2 (08:11→20:09)
[2022-12-31] MEDS: Aspirin Chewable 81 MG TAB PO SCH (08:11)
[2022-12-31] MEDS: Cholecalciferol (Vitamin D3) 400 UNITS TAB PO SCH (08:11)
[2022-12-31] MEDS: Simethicone Chewable 80 MG TAB PO SCH ×4 (08:12→22:35)
[2022-12-31] MEDS: Clopidogrel Bisulfate 75 MG TAB PO SCH (08:12)
[2022-12-31] MEDS: Amlodipine 5 MG TAB PO SCH (08:12)
[2022-12-31] MEDS: Lisinopril 20 MG TAB PO SCH (08:13)
[2022-12-31] MEDS: Polyethylene Glycol OPTH DROP 15 ML BOT R EYE PRN (10:30)
[2022-12-31] MEDS: Atorvastatin Calcium 40 MG TAB PO SCH (20:09)
[2023-01-01] MEDS: Levothyroxine Sodium 25 MCG TAB PO SCH (05:10)
[2023-01-01] MEDS: Simethicone Chewable 80 MG TAB PO SCH ×4 (08:08→22:25)
[2023-01-01] MEDS: Polyethylene Glycol OPTH DROP 15 ML BOT R EYE PRN (08:08)
[2023-01-01] MEDS: levETIRAcetam 500 mg/5 ml Oral Solution PO SCH ×2 (08:08→20:00)
[2023-01-01] MEDS: Aspirin Chewable 81 MG TAB PO SCH (08:08)
[2023-01-01] MEDS: Lisinopril 20 MG TAB PO SCH (08:09)
[2023-01-01] MEDS: Amlodipine 5 MG TAB PO SCH (08:09)
[2023-01-01] MEDS: Clopidogrel Bisulfate 75 MG TAB PO SCH (08:09)
[2023-01-01] MEDS: Saccharomyces boulardii 250 MG CAP PO SCH (08:09)
[2023-01-01] MEDS: Cholecalciferol (Vitamin D3) 400 UNITS TAB PO SCH (08:14)
[2023-01-01] MEDS: Ferrous Sulfate 325 MG TAB PO SCH (17:16)
[2023-01-01] MEDS: Atorvastatin Calcium 40 MG TAB PO SCH (20:00)
[2023-01-02 05:24] LABS: Platelet Count 259 10x3/uL (130-400)
[2023-01-02] MEDS: Levothyroxine Sodium 25 MCG TAB PO SCH (05:24)
[2023-01-02 07:18] VITALS: BP 108/60; TEMP 98.3
[2023-01-02] MEDS: Cholecalciferol (Vitamin D3) 400 UNITS TAB PO SCH (08:54)
[2023-01-02] MEDS: Amlodipine 5 MG TAB PO SCH ×2 (08:55→09:53)
[2023-01-02] MEDS: Simethicone Chewable 80 MG TAB PO SCH (08:56)
[2023-01-02] MEDS: Clopidogrel Bisulfate 75 MG TAB PO SCH (08:56)
[2023-01-02] MEDS: Lisinopril 20 MG TAB PO SCH ×2 (08:56→09:55)
[2023-01-02] MEDS: Aspirin Chewable 81 MG TAB PO SCH (08:56)
[2023-01-02] MEDS: Saccharomyces boulardii 250 MG CAP PO SCH (08:56)
[2023-01-02] MEDS: levETIRAcetam 500 mg/5 ml Oral Solution PO SCH (08:59)
== END 2023-01-02 12:35 | disposition hospice, home (50) | DRG 57 ==
LOC: MADMS 18:28
PROVIDERS: ADMIT Family Medicine; ATTEND Family Medicine
DX: I69.351 Hemiplegia and hemiparesis following cerebral infarction affecting right dominant side (principal); I10 Essential (primary) hypertension; G40.909 Epilepsy, unspecified, not intractable, without status epilepticus; Z66 Do not resuscitate; Z51.5 Encounter for palliative care; E78.5 Hyperlipidemia, unspecified; E03.9 Hypothyroidism, unspecified; F01.50 Vascular dementia, unspecified severity, without behavioral disturbance, psychotic disturbance, mood disturbance, and anxiety; Z85.841 Personal history of malignant neoplasm of brain; Z88.5 Allergy status to narcotic agent; Z79.899 Other long term (current) drug therapy; Z79.82 Long term (current) use of aspirin; Z90.710 Acquired absence of both cervix and uterus; Z98.890 Other specified postprocedural states
CPT/HCPCS: 36415; 82565; 85014; 85018; 85049; J1650